=== PATIENT | male | born 1930 | race Caucasian/White ===

== ENCOUNTER 2017-09-11 14:51 | Emergency (ER) | payer MEDICARE, BC ==
[2017-09-11 14:58] VITALS: BP 134/63; PULSE 53; RESP 18; TEMP 97.3
[2017-09-11] MEDS ORDERED: MECLIZINE 12.5 MG TAB PO STA (15:13)
--- NOTE | 2017-09-11 15:18 | ED ---
Dizziness HPI - General Chief Complaint: Dizziness Stated Complaint: dizziness Time Seen by Provider: 09/11/17 14:59 Source: patient Mode of arrival: wheelchair Limitations: no limitations - History of Present Illness Initial Comments: This is an 87-year-old male with a history of H of fibrillation, CAD, hypertension, hyperlipidemia who presents emergent department for dizziness. The patient states it's been going on for the last month and a half. He is seen his primary doctor who prescribed him Antivert and another medication that he does not recall. He states he ran out over the holidays and has not had a chance to pick them back up. He states that he feels that the medications helped only minimally. He states that he only has the symptoms when he goes from a sitting to laying down position. He states that the symptoms only last a few seconds and then go away after he's been laying there for a while. He states he also has his symptoms when he goes from sitting to bending forward however again the symptoms are fatigable. 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 He denies any headaches. No difficulty with speech or swallowing. Denies any focal weaknesses arms or legs. No focal sensation loss. Denies any other complaints. - Related Data Home Medications Medication Instructions Recorded Confirmed Loratadine [Claritin] 10 mg PO DAILY 07/28/15 09/11/17 Potassium Chloride [K-Tab ER] 10 meq PO DAILY 07/28/15 09/11/17 ALPRAZolam [Xanax] 0.5 mg PO DAILY 09/17/15 09/11/17 Acetaminophen-Codeine 300-30mg 1 tab PO BID 09/11/17 09/11/17 [Tylenol #3] Atenolol [Tenormin] 25 mg PO DAILY 09/11/17 09/11/17 Ipratropium [place] 0.06%Nasal 1 spray EA NOSTRIL DAILY 09/11/17 09/11/17 [Atrovent Nasal 0.06%] Ipratropium Nebulized [Atrovent 0.5 mg INHALATION RT-BID 09/11/17 09/11/17 Nebulized] Ipratropium-Albuterol Nebulize 3 ml INHALATION RT-QID 09/11/17 09/11/17 [Duoneb 0.5 mg-3 mg/3 ml Soln] Ipratropium/Albuterol Sulfate 2 puff INHALATION RT-QID 09/11/17 09/11/17 [Combivent Respimat Inhaler] Levothyroxine Sodium [Synthroid] 137 mcg PO DAILY 09/11/17 09/11/17 Meclizine [Antivert] 25 mg PO TID 09/11/17 09/11/17 Omeprazole 20 mg PO DAILY 09/11/17 09/11/17 Simvastatin 20 mg PO DAILY 09/11/17 09/11/17 Tamsulosin [Flomax] 0.4 mg PO DAILY 09/11/17 09/11/17 Previous Rx's Medication Instructions Recorded Aspirin EC [Ecotrin Low Dose] 81 mg PO DAILY tablet. 08/02/15 Metaxalone [Skelaxin] 400 mg PO BID PRN #20 tablet 09/11/17 Allergies Allergy/AdvReac Type Severity Reaction Status Date / Time cetirizine [From Zyrtec] Allergy Unknown Verified 09/11/17 15:50 Review of Systems ROS Statement: Those systems with pertinent positive or pertinent negative responses have been documented in the HPI. ROS Other: All systems not noted in ROS Statement are negative. Past Medical History Past Medical History: Atrial Fibrillation, Coronary Artery Disease (CAD), Cancer , Chest Pain / Angina, COPD, Diabetes Mellitus, Eye Disorder, GERD/Reflux, Hearing Disorder / Deafness, Hyperlipidemia, Hypertension, Osteoarthritis (OA), Pneumonia, Prostate Disorder, Thyroid Disorder, Vascular Disorder Additional Past Medical History / Comment(s): 10-18-15 ADMITTED FOR COUGH/ CONGESTION, CLINICAL IMPRESSION HOSPITAL ACQUIRED PNE.WAS RECENTLY HERE ON Pt presented to [facility] ER after his home care nurse told him his heart was running too fast. Wefe states pt has been getting weaker and he doesn't eat much. Pt is being admitted with clinical impression of AFib with RVR, pneumonia. Pt was admitted to [facility] 06/13/15 with discharge diagnosis of respiratory failure 2ndary to RLL pneumoniia and AFib and COPD and also had mild exacerbation of COPD and low back pain post fall. Other hx: Recurrent pneumonias, colon cancer with bowel resection, macular degeneration RT EYE, LEGALLY BLIND CAN SEE SHADOWS AND LT EYE POOR VISON, frequent FALLS, L[place] bilaterally, NIDDM, vitamin D deficiency, hypothyroidism, BPH, DJD, chronic mild disc disease, spinal stenosis, PAD,Abdominal Aortic Aneurysm,Currently having difficulty swallowing History of Any Multi-Drug Resistant Organisms: None Reported Past Surgical History: Appendectomy, Back Surgery, Bowel Resection, Heart Catheterization With Stent, Prostate Surgery, Tonsillectomy Additional Past Surgical History / Comment(s): AAA repair, partial gastrectomy secondary to peptic ulcer disease, for exploratory laparotomy and lysis of adhesion for small bowel obstruction, prostatectomy, appendectomy, 2 back surgeries, colonoscopy about 5 years ago, bilateral cataract surgery. Past Anesthesia/Blood Transfusion Reactions: No Reported Reaction, Motion Sickness Additional Past Anesthesia/Blood Transfusion Reaction / Comment(s): Pt has not received blood. Unknown family hx. Date of Last Stent Placement:: 1979 Past Psychological History: No Psychological Hx Reported Smoking Status: Former smoker Past Alcohol Use History: None Reported Past Drug Use History: None Reported - Past Family History Sister(s) Family Medical History: Seizure Disorder Father Family Medical History: Diabetes Mellitus Mother Family Medical History: No Reported History Brother(s) Family Medical History: No Reported History General Exam - General Exam Comments Initial Comments: Constitutional: Awake alert Appears comfortable Head: Normocephalic atraumatic Eyes: no conjunctival injection No scleral icterus EOMI Neck: No JVD Supple Heart: Regular rate rhythm normal S1-S2 no murmurs Lungs: Clear to auscultation bilaterally No wheezing No rales Abdomen: Soft nondistended nontender Extremities: Non edematous DP pulses intact Radial pulses intact Neuro: A&Ox3 cranial nerves II through XII are grossly intact, 5 out of 5 strength in upper and lower [place] bilaterally, finger to nose and heel to balderrama testing is normal bilateral laterally. No ataxia with gait, pupils are 4 mm and sluggish bilaterally, The muscles are intact, with the patient goes from a sitting to laying position it does appear to have a right beating nystagmus on exam that only lasts a few seconds. Psych: Appropriate mood and affect Limitations: no limitations Course Vital Signs 09/11/17 14:54 Temperature 97.3 F L Pulse Rate 53 L Respiratory 18 Rate Blood Pressure 134/63 O2 Sat by Pulse 98 Oximetry EKG Findings - EKG Comments: EKG Findings:: EKG showing sinus bradycardia with a rate of 54. No abnormal ST 7 changes or T-wave inversions. QTC is 453. Other intervals normal. No ectopy. Medical Decision Making - Medical Decision Making This is a 87-year-old male who presents emergency department for vertigo. The symptoms have been constant for last couple of months. He did EKG which is unremarkable. CT of the head showed enlarged ventricles however could be related to atrophy. I did asked the patient questions about difficult with ambulation or urinary incontinence or mental status changes. He denied all these things. He has meclizine at the pharmacy which I confirmed with a call over there. He is asking for something for his neck which she's been having for also the last few months. We'll start him on Skelaxin and told to follow- up with Dr. murray. If he has consistent symptoms he should see ENT which she was referred to. Return if worsening symptoms. All questions were answered. Disposition Clinical Impression: Vertigo Disposition: HOME SELF-CARE Condition: Stable Instructions: Dizziness (ED) Prescriptions: Metaxalone [Skelaxin] 400 mg PO BID PRN #20 tablet PRN Reason: Muscle Spasm Referrals: Ramin Luna MD [Primary Care Provider] - 1-2 days Dick Thornton DO [Doctor of Osteopathic Medicine] - 1-2 days
--- NOTE | 2017-09-11 15:59 | CT ---
EXAMINATION TYPE: CT brain wo con DATE OF EXAM: 09/11/2017 COMPARISON: 06/13/2015 HISTORY: Dizziness CT DLP: 1165 mGycm Automated exposure control for dose reduction was used. TECHNIQUE: Standard unenhanced CT of the brain was performed. FINDINGS: There is no acute intracranial hemorrhage or midline shift identified. There is diffuse v entricular and sulcal prominence consistent with diffuse age-related cerebral atrophy. There are few areas of low-attenuation in the periventricular white matter consistent with chronic small vessel is chemic change. No transependymal edema. No suspicious extra-axial fluid collection. The globes are i ntact and the visualized sinuses are clear. IMPRESSION: 1. No acute intracranial hemorrhage or midline shift. 2. Ventricular prominence is symmetric to the peripheral sulci and could relate to pronounced cerebra l atrophy, similar in degree to the exam of 06/13/2015, however this also could represent normal pres sure hydrocephalus without transependymal edema. Correlation with symptoms is recommended.
== END 2017-09-11 16:21 | disposition home or self-care (01) ==
LOC: EC 14:51
DX: R42 Dizziness and giddiness (principal); I48.91 Unspecified atrial fibrillation; I25.10 Atherosclerotic heart disease of native coronary artery without angina pectoris; J44.9 Chronic obstructive pulmonary disease, unspecified; E11.9 Type 2 diabetes mellitus without complications; K21.9 Gastro-esophageal reflux disease without esophagitis; E78.5 Hyperlipidemia, unspecified; I10 Essential (primary) hypertension; M19.90 Unspecified osteoarthritis, unspecified site; E03.9 Hypothyroidism, unspecified; N40.0 Benign prostatic hyperplasia without lower urinary tract symptoms; Z79.899 Other long term (current) drug therapy; Z88.8 Allergy status to other drugs, medicaments and biological substances
CPT/HCPCS: 70450; 93005; 99284